=== PATIENT | female | born 1950 | race Asian ===

== ENCOUNTER 2020-05-30 09:40 | Emergency (ER) | payer OTHER ==
[~2020-05-30] VITALS: Ht 162.6 cm; Wt 54.4 kg
[2020-05-30 10:20] VITALS: Ht 162.6 cm; Wt 54.4 kg
[2020-05-30 13:44] VITALS: BP 139/95
== END 2020-05-30 13:44 | disposition home or self-care (01) ==
LOC: ED 09:40
DX: S13.9XXA Sprain of joints and ligaments of unspecified parts of neck, initial encounter (principal); S20.219A Contusion of unspecified front wall of thorax, initial encounter; I10 Essential (primary) hypertension; Z91.018 Allergy to other foods; V49.9XXA Car occupant (driver) (passenger) injured in unspecified traffic accident, initial encounter; Y93.I9 Activity, other involving external motion; Y92.413 State road as the place of occurrence of the external cause; Y99.8 Other external cause status